=== PATIENT | female | born 1955 | race Caucasian/White ===

== ENCOUNTER 2019-08-15 11:34 | Outpatient (CLI) | payer MEDICARE, SELFPAY ==
--- NOTE | ~2019-08-15 | MM_ITS ---
EXAMINATION: MM diagnostic vicky BI w susan HISTORY: History of right breast cancer TECHNIQUE: Craniocaudal, mediolateral, and mediolateral oblique 3-D tomosynthesis images of the breas ts were performed and synthetic 2-D images were generated. CAD analysis was submitted and interpreted . COMPARISON: 08/06/2018, 08/23/2017, 07/24/2016 BREAST PARENCHYMAL COMPOSITION: The breasts are almost entirely fatty. FINDINGS: There are lumpectomy changes in the right breast. There is no evidence of suspicious mass, calcification, or architectural distortion in either breast to suggest malignancy. There has been n o suspicious interval change. IMPRESSION: 1. Right breast lumpectomy changes without evidence of suspicious interval change. No mammographic ev idence of malignancy. 2. Recommend routine screening mammography in one year. BI-RADS Category 2: Benign finding(s). Reviewed, dictated and finalized at location A. IMPRESSION: 1. Right breast lumpectomy changes without evidence of suspicious interval rahman ge. No mammographic evidence of malignancy. 2. Recommend routine screening mammography in one year. BI-RADS Category 2: Benign finding(s).
== END 2019-08-15 11:35 | disposition home or self-care (01) ==
LOC: ANHIMG 11:41
PROVIDERS: PCP Family Medicine; Visit Provider Family Medicine
DX: Z85.3 Personal history of malignant neoplasm of breast (principal)
CPT/HCPCS: 77062; 77066; G0279

== ENCOUNTER 2020-08-17 14:15 | Outpatient (CLI) | payer MEDICARE, SELFPAY ==
--- NOTE | ~2020-08-17 | DEXA_ITS ---
Bone Density Report Name: Dinorah Ferrari Age: 64 Sex: Female Ethnicity: White Date of : 1955 Indication: postmenopausal; prior fracture; cancer; hysterectomy; Referring Provider: Gopi Siegel Study: Bone densitometry was performed. Exam Date: August 17, 2020 Accession number: [id number] Bone Density: Region BMD T-score Z-score Classification AP Spine (L1-L4) 1.045 0.0 1.9 Normal World Health Organization criteria for BMD impression classify patients as: Normal (T-score at or above -1.0), Osteopenia (T-score between -1.0 and -2.5), or Osteoporosis (T-score at or below -2.5). Previous Exams: Region Exam Age BMD T-score BMD Change BMD Change Date g/cm2 vs Baseline vs Previous AP Spine(L1-L4) 08/17/2020 64 1.045 0.0 0.014(1.3%)# 0.014(1.3%)# 08/06/2018 62 1.031 -0.1 *Denotes significance at 95% confidence level, LSC for AP Spine = 0.022 g/cm2 Clinical Information Provided by Patient: Has had a low trauma fracture Has used the following medications: Vitamin D, Calcium Has the following medical conditions: Cancer, Hysterectomy Patient maximum height was 71 Menopause Age: 40 Drinks caffeinated beverages Onset of menses at age 11 Number of children 1 Impression: The patient has normal bone mass. The patient has risk factors, including: previous fracture. No significant bone loss was observed. Discussion: BONE DENSITY IS ABOVE THE MINIMUM DESIRABLE LEVEL AT ALL SKELETAL SITES TESTED. This patient?s bone mineral density is above the minimum desirable level (T-score -1.0 or better) at all sites measured. The patient should follow a healthful lifestyle (good nutrition with adequate calcium and vitamin D, and appropriate weight-bearing exercise). Follow-Up: Consider repeating this study in 5 years or sooner if there is some new clinical indication. Reported by: [facility] on 08/17/2020 2:54:00 PM. Reviewed, dictated and finalized at location Avelina RUANO
--- NOTE | ~2020-08-17 | MM_ITS ---
EXAMINATION: MM screening vicky BI w susan HISTORY: Screening mammogram, history of right breast cancer TECHNIQUE: Craniocaudal and mediolateral oblique 3-D tomosynthesis images were obtained and synthetic 2-D images were generated. CAD analysis was submitted and interpreted. COMPARISON: 08/15/2019, 08/06/2018, 08/04/2017 BREAST PARENCHYMAL COMPOSITION: The breasts are almost entirely fatty. FINDINGS: Again noted are stable lumpectomy changes in the right breast. There is no evidence of susp icious mass, calcification, or architectural distortion to suggest malignancy in either breast. There has been no suspicious interval change. IMPRESSION: 1. No mammographic evidence of malignancy. 2. Recommend routine screening mammography in one year. BI-RADS Category 2: Benign finding(s). Reviewed, dictated and finalized at location A.
== END 2020-08-17 14:16 | disposition home or self-care (01) ==
LOC: ANHIMG 14:17
PROVIDERS: PCP Family Medicine; Visit Provider Physician Assistant Medical
DX: Z12.31 Encounter for screening mammogram for malignant neoplasm of breast (principal); Z78.0 Asymptomatic menopausal state
CPT/HCPCS: 77063; 77067; 77080

== ENCOUNTER 2021-08-29 07:25 | Outpatient (CLI) | payer MEDICARE, SELFPAY ==
--- NOTE | ~2021-08-29 | MM_ITS ---
EXAMINATION: MM screening vicky BI w susan HISTORY: Screening mammogram TECHNIQUE: Craniocaudal and mediolateral oblique 3-D tomosynthesis images were obtained and synthetic 2-D images were generated. CAD analysis was submitted and interpreted. COMPARISON: 08/17/2020, 08/15/2019, 08/06/2018 bilateral screening mammogram examinations BREAST PARENCHYMAL COMPOSITION: The breasts are almost entirely fatty. FINDINGS: Again noted is postoperative change from right partial mastectomy for breast cancer, includ ing surgical clips and prominent calcification from fat necrosis in the upper mid right breast. There is no evidence of suspicious mass, calcification, or interval architectural distortion to sugge st malignancy in either breast. There has been no suspicious interval change. IMPRESSION: 1. Status post right partial mastectomy for breast cancer; no evidence of malignancy 2. Recommend routine screening mammography in one year. BI-RADS Category 2: Benign finding(s). Reviewed, dictated and finalized at location A. IMPRESSION: 1. Status post right partial mastectomy for breast cancer; no evidence of malig christie 2. Recommend routine screening mammography in one year. BI-RADS Category 2: Benign finding(s).
== END 2021-08-29 07:26 | disposition home or self-care (01) ==
LOC: ANHIMG 07:26
PROVIDERS: PCP Family Medicine; Visit Provider Family Medicine
DX: Z12.31 Encounter for screening mammogram for malignant neoplasm of breast (principal)
CPT/HCPCS: 77063; 77067

== ENCOUNTER 2022-09-12 13:56 | Outpatient (CLI) | payer MEDICARE, SELFPAY ==
--- NOTE | ~2022-09-12 | CT_ITS ---
EXAMINATION: CT lung screening DATE: 09/12/2022 14:13 INDICATION: Personal history of nicotine dependence, prior smoker with 20 pack year history TECHNIQUE: Computed tomography (CT) of the chest was performed without intravenous contrast. The dose -length product (DLP) was 310.55 mGy-cm. Automated exposure control and iterative reconstruction tech [employer] Dynamics[employer] were employed. COMPARISON: None FINDINGS: There are scattered small nodules of the lungs. The largest is a 4 mm nodule in the left lo wer lobe on image 68. The lungs are free of acute opacities. No pleural effusion or pneumothorax. The re is mild emphysema. No pathologically enlarged thoracic lymph nodes are identified. The heart size is normal. Subendocardial fat deposition in the left ventricular apex is suggestive of prior myocardi al infarction. Dystrophic calcification in the right breast and surgical clips in the right breast an d right axilla are consistent with treatment for right breast cancer. A 2.7 cm low-density mass in th e right adrenal gland is consistent with an adenoma. There is a 2.1 cm hemorrhagic cyst of the left k idney upper pole. IMPRESSION: 1. Lung-RADS category 2: Benign appearance or behavior. Continue annual screening with noncontrast lo w-dose chest CT in 12 months. Reviewed, dictated and finalized at location F. IMPRESSION: 1. Lung-RADS category 2: Benign appearance or behavior. Continue annual screeni ng with noncontrast low-dose chest CT in 12 months.
== END 2022-09-12 13:57 | disposition home or self-care (01) ==
PROVIDERS: PCP Family Medicine; Visit Provider Family Medicine
DX: Z12.2 Encounter for screening for malignant neoplasm of respiratory organs (principal); Z87.891 Personal history of nicotine dependence
CPT/HCPCS: 71271

== ENCOUNTER 2022-11-19 08:08 | Outpatient (CLI) | payer MEDICARE, SELFPAY ==
--- NOTE | ~2022-11-19 | MM_ITS ---
EXAMINATION: MM screening [facility] BI w susan HISTORY: Screening TECHNIQUE: Craniocaudal and mediolateral oblique 3-D tomosynthesis images were obtained and synthetic 2-D images were generated. CAD analysis was submitted and interpreted. COMPARISON: Comparison to multiple prior studies sequentially, with oldest reviewed study dated 07/25. BREAST PARENCHYMAL COMPOSITION: There are scattered areas of fibroglandular density. FINDINGS: There are surgical changes in the right breast with nearby benign dystrophic calcifications . There is no evidence of suspicious mass, calcification, or architectural distortion to suggest rodney gnancy in either breast. There has been no suspicious interval change. IMPRESSION: 1. No mammographic evidence of malignancy. 2. Recommend routine screening mammography in one year. BI-RADS Category 2: Benign finding(s). Reviewed, dictated and finalized at location A.
== END 2022-11-19 08:09 | disposition home or self-care (01) ==
LOC: ANHIMG 08:16
PROVIDERS: PCP Family Medicine; Visit Provider Family Medicine
DX: Z12.31 Encounter for screening mammogram for malignant neoplasm of breast (principal)
CPT/HCPCS: 77063; 77067

== ENCOUNTER 2023-01-29 13:24 | Outpatient (CLI) | payer MEDICARE, SELFPAY ==
--- NOTE | 2023-01-29 13:33 | ECHO_ITS ---
Patient Info Name: Dinorah Ferrari Age: 67 years : 1955 Gender: Female Ht: 71 in Wt: 247 lbs BSA: 2.41 m2 HR: 72 bpm BP: 160 / 88 mmHg Heart Rhythm: Sinus Rhythm Technical Quality: Fair Exam Date: 01/29/2023 1:45 PM Exam Location: [facility] Pulmonary Patient Status: Outpatient Admit Date: 01/29/2023 Staff Ordering Physician: Johny Brannon MD Flower Picker: Shanique Fay RDCS Attending Provider: Johny Brannon MD Referring Physician: Clovis NAQVI; Exam Type: CA echo doppler color flow Study Info Indications R01.1 - Cardiac murmur, unspecified Complete two-dimensional, color flow and Doppler transthoracic echocardiogram is performed. Summary 1. Complete two-dimensional, color flow and Doppler transthoracic echocardiogram is performed. 2. Left ventricular chamber dimension is normal. 3. Left ventricular systolic function is normal, estimated at 60-65%. 4. There is mild concentric increased left ventricular wall thickness. 5. The left ventricular diastolic function is grade I diastolic dysfunction. 6. E/e' 16 is elevated. 7. Left atrial chamber dimension is mildly enlarged. 8. The mitral valve has moderately calcified annulus. 9. There is trace tricuspid valve regurgitation. 10. No pulmonary hypertension, estimated pulmonary arterial systolic pressure is 21 mmHg. Left Ventricle E/e' 16 is elevated. Left ventricular chamber dimension is normal. Left ventricular systolic function is normal, estimated at 60-65%. There is mild concentric increased left ventricular wall thickness. The left ventricular diastolic function is grade I diastolic dysfunction. Right Ventricle Right ventricular systolic function is normal and with normal TAPSE 3.0 cm. Right ventricular chamber dimension is normal. Left Atria Left atrial chamber dimension is mildly enlarged. Right Atria Right atrial chamber dimension is normal. Aortic Valve The aortic valve is trileaflet. There is no aortic valve stenosis. There is no aortic valve regurgitation. Pulmonic Valve There is no pulmonic regurgitation. Mitral Valve The mitral valve has moderately calcified annulus. There is no mitral valve stenosis. There is no mitral valve regurgitation. Tricuspid Valve There is trace tricuspid valve regurgitation. No pulmonary hypertension, estimated pulmonary arterial systolic pressure is 21 mmHg. Pericardium/Pleural There is no pericardial effusion. Inferior Vena Cava Normal inferior vena cava with >50% collapse upon inspiration consistent with normal right atrial pressure, 5 mmHg. Aorta The aortic root size at the sinus of Valsalva is normal. Left Ventricular Outflow Tract Name Value Normal LVOT 2D LVOT Diameter 2.0 cm LVOT Doppler LVOT Peak Gradient 13 mmHg LVOT Mean Gradient 5 mmHg LVOT VTI 34 cm LVOT VTI/AV VTI Ratio 1.0 LVOT Stroke Volume 103 ml LVOT CO 6.0 l/min LVOT CI 2.5 l/min/m2 Pulmonic Valve
== END 2023-01-29 13:25 | disposition home or self-care (01) ==
LOC: ANHCARD 13:25
PROVIDERS: PCP Family Medicine; Visit Provider Family Medicine
DX: R01.1 Cardiac murmur, unspecified (principal)
CPT/HCPCS: 93306

== ENCOUNTER 2023-11-23 08:25 | Outpatient (CLI) | payer MEDICARE, SELFPAY ==
--- NOTE | ~2023-11-23 | MM_ITS ---
EXAMINATION: MM screening [facility] BI w susan HISTORY: Screening TECHNIQUE: Craniocaudal and mediolateral oblique 3-D tomosynthesis images were obtained and synthetic 2-D images were generated. CAD analysis was submitted and interpreted. COMPARISON: Comparison to multiple prior studies sequentially, with oldest reviewed study dated 04/2017. BREAST PARENCHYMAL COMPOSITION: Not Dense. The breasts are almost entirely fatty. FINDINGS: There is no evidence of suspicious mass, calcification, or architectural distortion to sugg est malignancy in either breast. There has been no suspicious interval change. IMPRESSION: 1. No mammographic evidence of malignancy. 2. Recommend routine screening mammography in one year. BI-RADS Category 1: Negative Reviewed, dictated and finalized at location B.
== END 2023-11-23 08:26 | disposition home or self-care (01) ==
LOC: ANHIMG 08:26
PROVIDERS: PCP Family Medicine; Visit Provider Family Medicine
DX: Z12.31 Encounter for screening mammogram for malignant neoplasm of breast (principal)
CPT/HCPCS: 77063; 77067

== ENCOUNTER 2024-10-21 00:50 | Day surgery (SDC) | payer OTHER, SELFPAY ==
[2024-10-05 13:01] VITALS: BMI 35.3
--- OUTSIDE RECORDS SUMMARY | 2024-10-21 00:52 | XMS_ITS | Clinical Summary ---
Author Organization [facility] Address [address] [address] Care Team Providers Care Employee Counselor Name Role Phone Rebeca Brannon MD Primary Care Provider [phone] Source Comments [facility],non-owned Affiliates and Associated Physician Practices is amultiple site organization consisting of ambulatory clinics and hospital sitesin [place], [place], [place] and [place]. This disclosure is being madepursuant to the Care Everywhere program and may not contain all information available regarding this patient. Last updated 17.[facility] Allergies Active Allergy Reactions Criticality Noted Date Comments Adhesive Sensitivity 04/17/2010 Amoxicillin 04/17/2010 Codeine 04/17/2010 Penicillins 04/17/2010 Sulfa Drugs 04/17/2010 Medications * Be aware that medications may not be up to date on this document. Alwaysverify current medications with the patient. aspirin (ASPIRIN) 81 MG tablet Take 81 mg by mouth once daily Active calcium carbonate (CALTRATE) 600 MG tablet Active vitamin D, ergocalciferol, (DRISDOL) 61904 units capsule Take 50,000 Units by mouth Active MULTIPLE VITAMIN PO Active HM OMEGA-3-6-9 FATTY ACIDS PO Activ e omeprazole (PRILOSEC) 20 MG capsule 11/17/2017 Active ascorbic acid (VITAMIN C) 500 MG tablet Take 500 mg by mouth once daily With zinc Active ferrous sulfate 325 (65 FE) MG tablet Take 325 mg by mouth once daily Active Active Problems Problem Noted Date Diagnosed Date Hepatic steatosis 12/21/2018 Elevated liver enzymes 11/11/2018 Social History Tobacco Use Types Packs/Day Years Used Date Smoking Tobacco: Former Smokeless Tobacco: Never Alcohol Use Standard Drinks/Week Comments Yes 0 (1 standard drink = 0.6 oz pur e alcohol) A beer every two months Comments Unknown Sex and Gender Information Value Date Recorded Sex Assigned at Not on file 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 Gender Identity Not on file Sexual Orientation Not on file Last Filed Vital Signs Vital Sign Reading Time Taken Comments Blood Pressure 137/68 12/21/2018 1:20 PM CDT Pulse 106 12/21/2018 1:20 PM CDT Temperature 36.6 C (97.9 F) 12/21/2018 1:20 PM CDT Respiratory Rate 18 12/21/2018 1:20 PM CDT Oxygen Saturation 97% 12/21/2018 1:20 PM CDT Inhaled Oxygen Concentration - - Weight 131.4 kg (289 lb 11.2 oz) 12/21/2018 1:20 PM CDT Height 180.3 cm (5' 11) 12/21/2018 1:20 PM CDT Body Mass Index 40.4 12/21/2018 1:20 PM CDT Plan of Treatment Health Maintenance Due Date Last Done Comments BONE DENSITY TESTING 1955 COLOGUARD (AGES 45-75) - COL ON CA SCREENING 1955 COLON MONITORING 1955 COLONOSCOPY - COLON CA SCREENING 1955 CT COLONOGRAPHY - COLON CA SCREENING 1955 Colorectal Cancer Screening 1955 FIT - COLON CA SCREENING 1955 FLEX SIG - COLON CA SCREENING 1955 LIPID TESTING 1955 MAMMOGRAM 1955 DTAP/TDAP/TD VACCINES (1 - Tdap) 1972 PNEUMOCOCCAL VACCINE 50+ (1 of 1 - PCV) 11/09/2003 ZOSTER VACCINE (1 of 2) 11/09/2003 Respiratory Syncytial Virus (RSV) Vaccine Pt: or over 60 yrs (1 - Risk 60-74 years 1-dose series) 2013 SCREENING FOR DIABETES 06/19/2022 0, 11/11/2018 COVID-19 VACCINE (1 - 2023-2 5 season) 2023 DEPRESSION SCREENING 04/06/2024 INFLUENZA VACCINE (#1) 2024 HEPATITIS C SCREENING Completed 11/11/2018 , 11/11/2018, 11/11/2018 HEPATITIS B VACCINE Aged Out No longe r eligible based on patient's age to complete this topic HIB VACCINE Aged Out No longer eligi ble based on patient's age to complete this topic HPV VACCINE Aged Out No longer eligi ble based on patient's age to complete this topic MENINGOCOCCAL (Group B) VACCINE SHARED DECISION-MAKING Aged Out No longer eligible based on patient's age to complete this topic MENINGOCOCCAL GROUPS A/C/Y/W VACCINE Aged Out No longer eligible b ased on patient's age to complete this topic Goals Goal Patient Goal Type Associated Problems Recent Progress Patient-Stated? Author Medication Management General On track( 019 1:54 PM CDT) Radha Huddleston RN Note: Expected end date: Ongoing Interventions: Take all medications as prescribed Let your doctor know right away about any changes in your medications Make sure to request a refill of your medication at least one week prior to your last dose Procedures Procedure Name Priority Date/Time Associated Diagnosis Comments COMPREHENSIVE METABOLIC PANEL Routine 06/20/2019 10:49 AM CDT Hepatic steatosis HEPATITIS C RNA QUANTITATIVE Routine 11/11/2018 4:42 PM CDT Elevated liver enzymes from Last 3 Months or Most Recently Relevant to Health Maintenance Results * COMPREHENSIVE METABOLIC PANEL (06/20/2019 10:49 AM CDT) Glucose 93 65 - 99 mg/dL [facility] INSURANCE BILL BUN 15 8 - 27 mg/dL [facility] INSURANCE BILL Creatinine 0.90 0.57 - 1.00 mg/dL [facility] INSURANCE BILL eGFR by MDRD 67 >59 mL/min/1.7 3 [facility] INSURANCE BILL eGFR by MDRD 78 >59 mL/min/1.7 3 [facility] INSURANCE BILL BUN/Creatinine Ratio 17 12 - 28 [facility] INSURANCE BILL Sodium 144 134 - 144 mmol/L [facility] INSURANCE BILL Potassium 4.6 3.5 - 5.2 mmol/L [facility] INSURANCE BILL Chloride 102 96 - 106 mmol/L [facility] INSURANCE BILL CO2 27 20 - 29 mmol/L [facility] INSURANCE BILL Calcium 9.9 8.7 - 10.3 mg/dL [facility] INSURANCE BILL Protein Total 7.0 6.0 - 8.5 g/dL [facility] INSURANCE BILL Albumin 4.3 3.8 - 4.8 g/dL [facility] INSURANCE BILL Globulin Total 2.7 1.5 - 4.5 g/dL [facility] INSURANCE BILL Albumin/Globulin Ratio 1.6 1.2 - 2.2 [facility] INSURANCE BILL Bilirubin Total 0.3 0.0 - 1.2 mg/dL [facility] INSURANCE BILL Alkaline Phosphatase 80 39 - 117 IU/L [facility] INSURANCE BILL AST 27 0 - 40 IU/L [facility] INSURANCE BILL ALT 28 0 - 32 IU/L [facility] INSURANCE BILL Blood BLOOD SPECIMEN / Unknown 06/20/2019 10:49 AM CDT 06/20/2019 Narrative Resulting Agency Comment [facility] [address] [phone] [place] Lance Bean MD LAB - CHEMISTRY ORDERABLES Tika cervantes Result [facility] INSURANCE BILL [address] [place] [address] * HEPATITIS C RNA QUANTITATIVE (11/11/2018 4:42 PM CDT) Hepatitis C RNA PCR, Interp Not Detected Not Detected 11/19/2018 7:59 AM CDT [facility] Blood BLOOD SPECIMEN / Unknown Lab Venipuncture / Unknown 11/11/2018 4:42 PM CDT 11/11/2018 4:51 PM CDT Narrative [facility] PATH[facility]Y [facility] - 11/19/2018 7:59 AM CDT The Hepatitis C viral (HCV) RNA analysis utilized a serum sample, real-time reverse automobile accessories installer PCR, and is reported as Not Detected, Detected (<12 IU/mL), Quantity (IU/mL) or >100,000,000 IU/mL. The limit of quantitation of the assay is 12 IU/mL (100% of samples with this HCV RNA level were detected). The linear range is from 12 IU/mL to 100,000,000 IU/mL. Values less than 12 IU/mL are reported as Detected (<12 IU/mL). Values greater than 100,000,000 IU/mL are reported as > 100,000,000 IU/mL. The detection/quantitation of HCV RNA in serum is based on the isolation of HCV RNA with reverse automobile accessories installer of genomic HCV RNA followed by real-time PCR in the presence of an unrelated RNA internal control. The internal control ensures that RNA is isolated, and that no general significant inhibitors of the RT-PCR process are present. The analysis was performed using a U.S. FDA approved test methodology ([employer] Real Time HCV). Lance Bean MD LAB - CHEMISTRY ORDERABLES Tika cervantes Result Performing Organization Address City/State/[facility] Co de Phone Number [facility] [address] [phone] from Last 3 Months or Most Recently Relevant to Health Maintenance Insurance [employer] Care Teams Employee Counselor Relationship Specialty Start Date End Date Rebeca Brannon MD [address] [place] [id number] PCP - General 11/11/18
--- OUTSIDE RECORDS SUMMARY | 2024-10-21 00:52 | XMS_ITS | Clinical Summary ---
Author Organization [facility] Address [address] [facility] [address] [place] [address] Phone Care Team Providers Care Chief Cloth Finishing Range Operator Name Role Phone Johny Brannon MD Primary Care Provider [phone]- [phone] Allergies Active Allergy Reactions Criticality Noted Date Comments Amoxicillin Unknown 11/27/2017 Codeine Unknown 11/27/2017 Other Itching 11/27/2017 Adhesive Tape Sulfa Antibiotics Unknown 11/27/2017 Medications atorvastatin (LIPITOR) 10 MG Tablet 09/21/2017 Active omeprazole (PRILOSEC) 20 MG CAPSULE DELAYED RELEASE 11/17/2017 Active ergocalciferol (VITAMIN D) 49808 UNIT Capsule Take 50,000 Units by mouth. Active Calcium Carbonate (CALCIUM 600 PO) Take by mouth. Active ferrous sulfate 325 (65 Fe) MG Tablet Take 325 mg by mouth daily. Active ascorbic acid (ASCORBIC ACID) 500 MG Tablet Take 500 mg by mouth daily. Active Showell-3 Fatty Acids (OMEGA 3 PO) Take by mouth. Active Multiple Vitamin (MULTIVITAMINS PO) Take by mouth. Active Aspirin 81 MG Tablet Take 81 mg by mouth daily. Active tamoxifen citrate 20 MG TabletIndication s:History of breast cancer Take 1 Tab by mouth daily. 90 Tab 4 11/27/2017 Active Active Problems Problem Noted Date Diagnosed Date GARCIA (nonalcoholic steatohepatitis) 12/05/2018 History of breast cancer 11/27/2017 Long-term current use of tamoxifen 11/27/2017 Family History Medical History Relation Name Comments Congestive Heart Failure Father Diabetes Father Hypertension Father Glaucoma Mother Macular Degeneration Mother Hypertension Sister Relation Name Status Comments Father Mother Alive Sister Social History Tobacco Use Types Packs/Day Years Used Date Smoking Tobacco: Former Cigarettes Smokeless Tobacco: Never Comments:3 cigarettes per da y for 20 years Alcohol Use Standard Drinks/Week Comments Yes 0 (1 standard drink = 0.6 oz pur e alcohol) 1 beer a month Comments No Sex and Gender Information Value Date Recorded Sex Assigned at Not on file Legal Sex Female 11:57 PM CDT Gender Identity Not on file Sexual Orientation Not on file Last Filed Vital Signs Vital Sign Reading Time Taken Comments Blood Pressure 142/84 12/01/2018 3:48 PM CDT Pulse 87 12/01/2018 3:48 PM CDT Temperature 36.7 C (98 F) 12/01/2018 3:48 PM CDT Respiratory Rate 18 12/01/2018 3:48 PM CDT Oxygen Saturation 94% 12/01/2018 3:48 PM CDT Inhaled Oxygen Concentration - - Weight 132.1 kg (291 lb 3.2 oz) 12/01/2018 3:48 PM CDT Height 180.3 cm (5' 11) 12/01/2018 3:48 PM CDT Body Mass Index 40.61 12/01/2018 3:48 PM CDT Plan of Treatment Health Maintenance Due Date Last Done Comments Zoster Immunization (1 of 2) 1972 Cologuard 1998 Colonoscopy 1998 Colorectal Cancer Screening 1998 Immunochemical Fecal Occult Blood 1998 Pneumococcal Immunization (50+ years) (1 of 1 - PCV) 11/09/2003 Respiratory Syncytial Virus (RSV) Immunization (Adult) (1 - Risk 60-74 years 1-dose series) 2013 SARS-COV-2 Immunization ( season) 2023 07/05/2021, 01/30/2021, 06/25/2020, Additional history exists Influenza Immunization (#1) 2024 12/15/2016, 0 12/13/2016 DTaP/Tdap/Td Immunization Discontinued 12/15/2016, 12/2016 TdaP Immunization Completed 12/15/2016, 12/13/2016 Mammogram Unilateral Discontinued 08/04/2017 Hepatitis B Immunization Aged Out No longer eligible based on patient's age to complete this topic Human Papillomavirus (HPV) Immunization Aged Out No longer eligible based on patient's age to complete this topic Meningococcal Immunization (ACWY) Aged Out No longer eligible based on patient's age to complete this topic Rotavirus Immunization Aged Out No lo nger eligible based on patient's age to complete this topic Procedures Procedure Name Priority Date/Time Associated Diagnosis Comments LIZ SCREENING BILATERAL WITH CAD Routine 08/04/2017 from Last 3 Months or Most Recently Relevant to Health Maintenance Results * LIZ SCREENING BILATERAL WITH CAD (08/04/2017) Anatomical Region Laterality Modality breast Bilateral Mammography Johny Brannon MD IMG MAMMO ORDERABLES Final Result from Last 3 Months or Most Recently Relevant to Health Maintenance Care Teams Chief Cloth Finishing Range Operator Relationship Specialty Start Date End Date Johny Brannon MD [facility] [address] [place] [address] PCP - General Family Medicine 11/23/17
--- OUTSIDE RECORDS SUMMARY | 2024-10-21 00:52 | XMS_ITS | Continuity of Care Document ---
Author Organization [facility] Address [address] [place] [address] Phone Care Team Providers Care Technical Operator Name Role Phone Hdz OD, Kwan Unavailable Unavailable Advance Directives Directive Yes / No Effective Date File Name No Information Encounters Encounter Description Practice Location Reason(s) For Visit Diagnoses Date Provider Providers Copied on Encounter Formerly [facility], [address] [place] [address] [address], [place], [place], [id number], [place] tel:[phone] [facility] No Information Sep-0 7-200 0 Hdz OD Kwan. [address] , [address], [place], [address], [place]. tel:[phone] Family History Family Member Type Diagnosis Age At Onset No Information Payers Payer name Insurance type Covered republican ID Authoriza tion(s) No Information Social History [...]
[2024-10-21 07:28] VITALS: BP 144/69; PULSE 85; RESP 18; TEMP 36.2; O2SAT 99; BMI 34.9
--- NOTE | 2024-10-21 07:48 | P.PNAN_ITS ---
Anes - Initial Pre Proc Eval Procedure: Operation Date: 10/21/24 08:30 Proposed Procedures p Screening Colonoscopy - Benja Alaniz MD Date/Time: 10/21/24 07:48 Surgeon: Benja Alaniz MD Pre Op Diagnosis: neoplasm screening Patient Data Age: 68 Gender: F Height: 1.8 m Weight: 113.6 kg Last Vital Signs Temp 36.2 C L 10/21/24 07:28 Pulse 85 10/21/24 07:28 Resp 18 10/21/24 07:28 BP 144/69 H 10/21/24 07:28 Pulse Ox 99 10/21/24 07:28 O2 Del Method Room Air 10/21/24 07:28 Allergies Allergy/AdvReac Type Severity Reaction Status Date / Time adhesive Allergy Severe BLISTERS Verified 10/21/24 07:38 adhesive tape Allergy Unknown Unknown Verified 10/21/24 07:38 amoxicillin Allergy Unknown allergic Verified 10/21/24 07:38 codeine Allergy Unknown allergic Verified 10/21/24 07:38 Sulfa (Sulfonamide Allergy Unknown Skin Verified 10/21/24 07:38 Antibiotics) Reaction tramadol Allergy Unknown Unknown Verified 10/21/24 07:38 Home Medications ?Medication ?Instructions ?Recorded ?Confirmed ?Type omega 3,6,9 combination no.7 92 mg 92 mg PO DAILY 05/18/19 10/05/24 History (43 mg-22 [id number]) chew tablet cholecalciferol (vitamin D3) 125 125 mcg PO DAILY 07/18/20 10/21/24 History mcg (5,000 unit) capsule ascorbate calcium (vitamin C) 500 500 mg PO DAILY 04/16/22 10/21/24 History mg tablet multivitamin (One Daily 1 tablet PO DAILY 04/16/22 10/21/24 History Multivitamin tablet) triamcinolone acetonide 0.1 % 1 applic topical QID #80 grams 03/23/23 10/21/24 Rx topical cream lisinopril 20 mg tablet 20 mg PO DAILY #90 tabs 04/14/24 10/21/24 Rx fluconazole 150 mg tablet 150 mg PO Q72H #2 tabs 07/25/24 10/21/24 Rx mirabegron 25 mg tablet,extended 25 mg PO DAILY #90 tabs 09/14/24 10/21/24 Rx release 24 hr (Myrbetriq) omeprazole 40 mg capsule,delayed 40 mg PO DAILY #90 caps 10/06/24 10/21/24 Rx release Patient hx anesthesia problems: none Family hx anesthesia problems: none Results Review: All pre-operative results and documents have been reviewed as part of the pre- operative evaluation. [facility] Past Medical History Medical History (Updated 10/21/24 @ 07:52 by Fabien Hernandez DO) History of breast cancer Mixed hyperlipidemia Nonalcoholic steatohepatitis (GARCIA) SWEETIE (obstructive sleep apnea) Essential (primary) hypertension History of chicken pox History of mumps History of measles Family History Family History (Updated 07/13/24 @ 15:41 by Maribel Molina MA) Father Hypertension Diabetes mellitus Heart disease Congestive heart failure Mother , Natural causes 2022 Family history of glaucoma Endometriosis Arthritis Macular degeneration Sibling Endometriosis Knee problem Sibling Endometriosis Sibling No chronic problems Grandparent Endometriosis Grandparent , in 20s No problems noted. Grandparent Congestive heart failure Grandparent Congestive heart failure Other Family history of colonic diverticulitis Social History Social History Smoking status: Former smoker Tobacco type: cigarettes Smoking end date: 04/06/99 Alcohol intake: current Substance use type: does not use Lack of Transportation: No Lack of Food: Never True Current Housing: I Have Housing Concerned About Future Housing: No Difficulty Paying Gas/Electric Bills: No Difficulty Paying for Meds: No Currently Unemployed: No Education: Bachelor's Degree Difficulty w/ Childcare or Family Care: No Living arrangements: alone Spiritual care concerns: No Anes - Eval Final PreProcedure Day of Procedure 10/21/24 07:48 Patient weight: obese Heart: regular rate and rhythm Lungs: clear to auscultation Airway: Mallampati scale class II Neurological: alert and oriented Last oral intake: >/= 8 hours ASA classification: III Emergent: no Anesthetic plan: proceed Anesthesia type and monitoring: general GIVS and standard monitoring Results Review: All pre-operative results and documents have been reviewed as part of the pre- operative evaluation. Informed Consent: The patient's anesthetic plan and its attendant risks and benefits were discussed with the patient/family/POA. Questions were solicited and answers provided to the satisfaction of the patient/family/POA.
[2024-10-21] MEDS: LACTATED RINGERS 1,000 ML 150 ML IV CONT (08:00)
--- NOTE | 2024-10-21 08:14 | PM.HPGS ---
History of Present Illness History of Present Illness Consent: Risks, benefits, and alternatives have been discussed and questions answered. Patient agrees to proceed with procedure. Chief complaint: neoplasm screening Narrative: Dinorah Ferrari is a 68 year old female here for screening colonoscopy, last one 5 years ago Review of Systems Review of Systems: All systems reviewed & are unremarkable except as noted in HPI and below PMFSH Past Medical History Medical History (Updated 10/21/24 @ 08:15 by Benja Alaniz MD) Colon cancer screening History of breast cancer Mixed hyperlipidemia Nonalcoholic steatohepatitis (GARCIA) SWEETIE (obstructive sleep apnea) Essential (primary) hypertension History of chicken pox History of mumps History of measles Family History Family History (Updated 07/13/24 @ 15:41 by Maribel Molina MA) Father Hypertension Diabetes mellitus Heart disease Congestive heart failure Mother , Natural causes 2022 Family history of glaucoma Endometriosis Arthritis Macular degeneration Sibling Endometriosis Knee problem Sibling Endometriosis Sibling No chronic problems Grandparent Endometriosis Grandparent , in 20s No problems noted. Grandparent Congestive heart failure Grandparent Congestive heart failure Other Family history of colonic diverticulitis Social History Social History Smoking status: Former smoker Tobacco type: cigarettes Smoking end date: 04/06/99 Alcohol intake: current Substance use type: does not use Lack of Transportation: No Lack of Food: Never True Current Housing: I Have Housing Concerned About Future Housing: No Difficulty Paying Gas/Electric Bills: No Difficulty Paying for Meds: No Currently Unemployed: No Education: Bachelor's Degree Difficulty w/ Childcare or Family Care: No Living arrangements: alone Spiritual care concerns: No Meds Home Medications and Allergies Home Medications ?Medication ?Instructions ?Recorded ?Confirmed ?Type omega 3,6,9 combination no.7 92 mg 92 mg PO DAILY 05/18/19 10/05/24 History (43 mg-22 [id number]) chew tablet cholecalciferol (vitamin D3) 125 125 mcg PO DAILY 07/18/20 10/21/24 History mcg (5,000 unit) capsule ascorbate calcium (vitamin C) 500 500 mg PO DAILY 04/16/22 10/21/24 History mg tablet multivitamin (One Daily 1 tablet PO DAILY 04/16/22 10/21/24 History Multivitamin tablet) triamcinolone acetonide 0.1 % 1 applic topical QID #80 grams 03/23/23 10/21/24 Rx topical cream lisinopril 20 mg tablet 20 mg PO DAILY #90 tabs 04/14/24 10/21/24 Rx fluconazole 150 mg tablet 150 mg PO Q72H #2 tabs 07/25/24 10/21/24 Rx mirabegron 25 mg tablet,extended 25 mg PO DAILY #90 tabs 09/14/24 10/21/24 Rx release 24 hr (Myrbetriq) omeprazole 40 mg capsule,delayed 40 mg PO DAILY #90 caps 10/06/24 10/21/24 Rx release Allergies Allergy/AdvReac Type Severity Reaction Status Date / Time adhesive Allergy Severe BLISTERS Verified 10/21/24 07:38 adhesive tape Allergy Unknown Unknown Verified 10/21/24 07:38 amoxicillin Allergy Unknown allergic Verified 10/21/24 07:38 codeine Allergy Unknown allergic Verified 10/21/24 07:38 Sulfa (Sulfonamide Allergy Unknown Skin Verified 10/21/24 07:38 Antibiotics) Reaction tramadol Allergy Unknown Unknown Verified 10/21/24 07:38 Vital Signs Vital Signs - 24 hr 10/21/24 07:28 Temperature 97.2 F L Pulse Rate 85 Respiratory Rate 18 Blood Pressure 144/69 H Pulse Oximetry 99 Oxygen Delivery Room Air Exam Const: General: comfortable and no acute distress HENMT: Face/Nose/Sinus: Normal nares present Eyes: General: appearance normal, both eyes and all related structures Neck: Neck: no JVD Resp: Auscultation: clear to auscultation bilaterally Cardio: Rate: regular rate Rhythm: regular rhythm GI: Inspection: non-distended GI Palp: Yes Soft to palpation Skin: General skin exam: normal color Neuro: General: gait normal Speech: normal speech Extrem: General: normal to inspection Psych: Mental Status: mental status grossly normal Assessment and Plan Assessment and plan (1) Colon cancer screening: Code(s): Z12.11 - Encounter for screening for malignant neoplasm of colon Status: Acute Assessment and Plan: colonoscopy
--- NOTE | 2024-10-21 08:32 | S_PTH ---
PATIENT: Dinorah Ferrari LOC: [facility]#:[id number] AGE/SX: 68/F ROOM: RE10/21/[address]: Benja Alaniz MD : 1955 BED: DIS: 10/21/2024 SPEC #: [id number] RECD: 10/21/24 10:15 STATUS: ELAINE SULTANA #: [id number] RL: 10/21/24 08:[address]: Benja Alaniz DEPT: [facility] Surgical RECD BY: Camila Fischer ENTERED: 10/21/24 10:15 SP TYPE: Surgical OTHR DR: Johny Brannon MD Tissues: A - Colon Polypectomy Procedures: Hematoxylin and Eosin Stain Gross and Microscopic Level 4
[2024-10-21 08:37] VITALS: BP 103/81; PULSE 75; RESP 20; O2SAT 99
[2024-10-21 08:47] VITALS: BP 133/64; PULSE 68; RESP 18; O2SAT 100
[2024-10-21 08:57] VITALS: BP 120/60; PULSE 62; RESP 21; O2SAT 100
== END 2024-10-21 09:07 | disposition home or self-care (01) ==
PROVIDERS: PCP Family Medicine; Referring Provider Family Medicine; Visit Provider Internal Medicine Gastroenterology
PROC: 0DJD8ZZ Inspection of Lower Intestinal Tract, Via Natural or Artificial Opening Endoscopic (ICD-10-PCS; CPT 45378; principal; 2024-10-21 08:30)
DX: Z12.11 Encounter for screening for malignant neoplasm of colon (principal); D12.3 Benign neoplasm of transverse colon; K57.30 Diverticulosis of large intestine without perforation or abscess without bleeding; K64.8 Other hemorrhoids; Z87.891 Personal history of nicotine dependence; E66.9 Obesity, unspecified; Z68.34 Body mass index [BMI] 34.0-34.9, adult
CPT/HCPCS: 45385; 88305; J2003; J2704; J7120

== ENCOUNTER 2024-11-23 07:50 | Outpatient (CLI) | payer OTHER, SELFPAY ==
--- OUTSIDE RECORDS SUMMARY | 1999-12-12 05:15 | XMS_ITS | Continuity of Care Document ---
Author Organization [facility] Address [address] [place] [address] Phone Care Team Providers Care Supervisor Metalizing Name Role Phone Hdz OD, Kwan Unavailable Unavailable Advance Directives Directive Yes / No Effective Date File Name No Information Encounters Encounter Description Practice Location Reason(s) For Visit Diagnoses Date Provider Providers Copied on Encounter [facility], [address] [place] [address] [address], [place], [place], [id number], [place] tel:[phone] [facility] No Information Sep-0 7-200 0 Hdz OD Kwan. [address] , [address], [place], [address], [place]. tel:[phone] Family History Family Member Type Diagnosis Age At Onset No Information Payers Payer name Insurance type Covered alliance party ID Authoriza tion(s) No Information Social History Type Description Quantity Date Captured Comments Sex Female Smoking Status No Information Chief Complaint And Reason For Visit No Information Reason For Referral Reason For Referral No Information History Of Present Illness Encounter Date Complaint History Of Prese nt Illness No Information Functional Status Date Functional Assessmen t No Information Instructions Date Instruction Additional Infor mation No Information Assessments Type Assessment Date No Information Patient Care Teams Name Effective Dates (start - stop) Status Members No Information
--- NOTE | ~2024-11-23 | MM_ITS ---
EXAMINATION: MM screening vicky BI w susan HISTORY: Screening mammogram TECHNIQUE: Craniocaudal and mediolateral oblique 3-D tomosynthesis images were obtained and synthetic 2-D images were generated. CAD analysis was submitted and interpreted. COMPARISON: 11/23/2023, 11/19/2022, 08/29/2021 BREAST PARENCHYMAL COMPOSITION:Not Dense. The breasts are almost entirely fatty FINDINGS: Stable densely calcified probable fat necrosis in the anterior right breast with associated postoperative change. No suspicious mass, calcification, or architectural distortion are identified in either breast to suggest malignancy. There has been no suspicious interval change. IMPRESSION: No mammographic evidence of malignancy. Recommend routine screening mammography in one year. BI-RADS Category 2: Benign finding(s). Reviewed, dictated and finalized at [facility].
--- OUTSIDE RECORDS SUMMARY | 2024-11-23 07:57 | XMS_ITS | Clinical Summary ---
Author Organization [facility] Address [address] [facility] [place] [address] Care Team Providers Care Career Technical Education Teacher Name Role Phone Rebeca Brannon MD Primary Care Provider [phone] [phone] Source Comments [facility],non-owned Affiliates and Associated Physician Practices is amultiple site organization consisting of ambulatory clinics and hospital sitesin [place], [place], [place] and [place]. This disclosure is being madepursuant to the Care Everywhere program and may not contain all information available regarding this patient. Last updated 17.[facility] Allergies Active Allergy Reactions Criticality Noted [...] MG tablet Active vitamin D, ergocalciferol, (DRISDOL) 50624 units capsule Take 50,000 Units by mouth [...] on file Legal Sex Female 9:48 AM HEAD OF TRANSPORT LOGISTICS Gender Identity Not on file Sexual Orientation [...] SCREENING 1955 LIPID TESTING 1955 MAMMOGRAM 1955 MEDICARE AWV 12 MONTHS 1955 DTAP/TDAP/TD VACCINES (1 - Tdap) 1972 [...] General On track( 019 1:54 PM CDT) No Radha Matta, WARREN Note: Expected end date: Ongoing Interventions: Take [...] Resulting Agency Comment Lab Testing performed at: [facility] [address] [facility] [id number] Lance Bean MD LAB - CHEMISTRY ORDERABLES Tika l Result [facility] INSURANCE BILL [address] [place] [address] * HEPATITIS C RNA QUANTITATIVE (11/11/2018 4:42 PM CDT) Hepatitis C RNA PCR, Interp Not Detected Not Detected 11/19/2018 7:59 AM CDT [facility] PATH[facility]Y LAB Blood BLOOD SPECIMEN / Unknown Lab Venipuncture / Unknown 11/11/2018 4:42 PM CDT 11/11/2018 4:51 PM CDT Narrative [facility] PATHOLOGY LAB - 11/19/2018 7:59 AM CDT The Hepatitis C viral (HCV) RNA analysis utilized a serum sample, real-time reverse pipeline technician PCR, and is reported as Not Detected, [...] the isolation of HCV RNA with reverse pipeline technician of genomic HCV RNA followed by real-time PCR in the presence of an unrelated RNA internal control. The internal control ensures that RNA is isolated, and that no general significant inhibitors of the RT-PCR process are present. The analysis was performed using a U.S. FDA approved test methodology (Adelphic Mobile Real Time HCV). us Lance Bean MD LAB - CHEMISTRY ORDERABLES Tika cervantes Result Performing Organization Address City/State/[facility] Co de Phone Number [facility] PATH[facility] LAB [facility]. [address] [phone] from Last 3 Months or Most Recently Relevant to Health Maintenance Insurance [facility] [employer] MEDICARE ADV PPO SELF PAY NO INSURANCE Member Subscriber Plan / Payer (Ef fective for All Dates) Name:Montrell Ivey Member ID:Not on file Relation to Subscriber:Not on file Name:MONTRELL IVEY Subscriber ID:Not on file (Home) Address: [address] [place], [place] [address] [place] [address] Payer ID:Not on file Group ID:Not on file Type:Self Pay Address: [place], [place] [facility] Care Teams Career Technical Education Teacher Relationship Specialty Start Date End Date Rebeca Brannon MD [address] [place] [address] PCP - General 11/11/18
--- OUTSIDE RECORDS SUMMARY | 2024-11-23 07:57 | XMS_ITS | Clinical Summary ---
Author Organization [facility] Address [address] [facility] [address] [place] [address] Phone Care Team Providers Care Director Business Integration Name Role Phone Johny Brannon MD Primary Care Provider [phone]- [phone] Allergies Active Allergy Reactions Criticality Noted Date Comments Amoxicillin Unknown 11/27/2017 Codeine Unknown 11/27/2017 Other Itching 11/27/2017 Adhesive Tape Sulfa Antibiotics Unknown 11/27/2017 Medications atorvastatin (LIPITOR) 10 MG Tablet 09/21/2017 Active omeprazole (PRILOSEC) 20 MG CAPSULE DELAYED RELEASE 11/17/2017 Active ergocalciferol (VITAMIN D) 67792 UNIT Capsule Take 50,000 Units by mouth. Active Calcium Carbonate (CALCIUM 600 PO) Take by mouth. Active ferrous sulfate 325 (65 Fe) MG Tablet Take 325 mg by mouth daily. Active ascorbic acid (ASCORBIC ACID) 500 MG Tablet Take 500 mg by mouth daily. Active Magnolia-3 Fatty Acids (OMEGA 3 PO) Take by [...] Recently Relevant to Health Maintenance Care Teams Director Business Integration Relationship Specialty Start Date End Date Johny Brannon MD [facility] [address] [place] [address] PCP - General Family Medicine 11/23/17
== END 2024-11-23 07:51 | disposition home or self-care (01) ==
LOC: ANHFOHIMG 07:53
PROVIDERS: PCP Family Medicine; Visit Provider Family Medicine
DX: Z12.31 Encounter for screening mammogram for malignant neoplasm of breast (principal)
CPT/HCPCS: 77063; 77067